=== PATIENT | male | born 1965 | race Caucasian/White ===

== ENCOUNTER → 2016-12-04 | Outpatient (CLI) | payer OTHER ==
[2014-09-20 10:01] VITALS: BP 117/76
[~2016-12-04] MED LIST: [UNRECOGNIZED DRUG - REMARK]
--- NOTE | 2016-12-04 13:27 | KCIC ---
PROCEDURE MR of the right shoulder HISTORY Right shoulder pain and popping. Pain for over 3 weeks. COMPARISON None TECHNIQUE Standard noncontrast images are obtained. FINDINGS The acromioclavicular joint is mildly degenerative. The rotator cuff demonstrates thickening and increased signal compatible with tendinosis. Mild partial tearing of the subscapularis tendon. No measurable defect or rupture of the supraspinatus or infraspinatus tendon. No significant subdeltoid bursal fluid. No significant rotator cuff muscle atrophy. There is a degenerative tear of the superior labrum extending into the posterior aspect as well. No acute articular cartilage defect. Lumbar spine Biceps tendinosis without rupture. No bone lesion. No acute fracture. No acute soft tissue injury. There is mild fatty infiltration of the teres minor muscle, a finding which can indicate chronic denervation due to chronic quadrilateral space syndrome. IMPRESSION 1. Rotator cuff tendinosis. Partial tear of the upper subscapularis tendon. 2. Posterosuperior labrum tear. 3. Biceps tendinosis. Electronically signed by: Matt Bowling MD (Dec 04, 2016 13:25:47)
== END | disposition home or self-care (01) ==
LOC: KCIC MRI 11:20
PROVIDERS: ATTEND Nurse Practitioner Primary Care
DX: M25.511 Pain in right shoulder (principal); M75.101 Unspecified rotator cuff tear or rupture of right shoulder, not specified as traumatic
CPT/HCPCS: 73221